=== PATIENT | male | born 1975 | race Two or more races ===

== ENCOUNTER 2019-03-08 21:27 | Emergency (ER) | payer BC, MEDICAID ==
[~2019-03-08] VITALS: Ht 177.8 cm; Wt 86.2 kg
--- NOTE | 2019-03-08 21:35 | NUR ---
Patient is AOx4, speaking in complete sentences, speech is clear. Able to follow /comprehend directions. Gait is stable. No cardiovascular distress noted. Rate/rhythm regular. No CP. No respiratory distress noted. Respirations even , unlabored, symmetrical chest rise. No adventitious sounds noted. Chief complaint: Patient comes in with c/o ABD pain 8-10/10, NAUSEA AND VOMITING X 4UPON ARRIVAL, AND lower back PAIN Bowel sounds present and normoactive in all four quadrants. - ABD distention. Denies Fever/Chills. No recent travel. +CHEMO [place] LAST 2008/NKDA. - ETOH / -recreational drug use/ NONSMOKER. LBM- yesterday. Continent of bowel and bladder function. SAFETY Patient in bed, bed in lowest position. Siderails up x 2. Call light within reach. Will continue to monitor accordingly HEAD Denies hitting head, LOC, diplopia, worsening headache, balance problems vertigo/dizziness, difficulty concentrating, photophobia, phonophobia, nausea, vomiting HEART hx of HTN DM CAD, denies hx of chest pain or sensation of tightness, SOB, no report of copious diaphoresis, denies shooting pains into left arm or jaw
[2019-03-08] MEDS ORDERED: IV NORMAL SALINE 1000 ML BAG IV ONE (22:15)
[2019-03-08] MEDS ORDERED: HYDROMORPHONE 1 MG/1 ML DISP.SYRIN IV ONE ×2 (22:15→23:30)
[2019-03-08] MEDS ORDERED: ONDANSETRON 4 MG/2 ML VIAL IV ONE (22:15)
[2019-03-08] MEDS ORDERED: FAMOTIDINE. 20 MG/2 ML VIAL IV ONE ×2 (22:15→22:19)
[2019-03-08] MEDS ORDERED: HYDROMORPHONE 1 MG/1 ML DISP.SYRIN ONE ×2 (22:19→23:29)
[2019-03-08] MEDS ORDERED: ONDANSETRON 4 MG/2 ML VIAL ONE (22:19)
[2019-03-08 22:24] LABS: BASOPHILS % (AUTO) 0.7 % (0.0-2.0); EOSINOPHILS # (AUTO) 0.3 K/uL (0.0-0.7); HEMATOCRIT 47.3 % (36.7-47.1); HEMOGLOBIN 16.1 g/dL (12.5-16.3); LYMPHOCYTES % (AUTO) 45.4 % (20.5-51.5); MEAN CORPUSCULAR HGB CONC 34 g/dL (32.5-36.3); MEAN CORPUSCULAR VOLUME 82.3 fL (73.0-96.2); MONOCYTES # (AUTO) 0.5 K/uL (2.0-10.0); MONOCYTES % (AUTO) 8.1 % (0.0-11.0); NEUTROPHILS # (AUTO) 2.7 K/uL (1.8-8.9); NEUTROPHILS % (AUTO) 41.8 % (38.5-71.5); PLATELET COUNT (AUTO) 278 K/uL (152-348); RED BLOOD CELL COUNT(AUTO) 5.74 MIL/uL (4.06-5.63); WHITE BLOOD COUNT (AUTO) 6.6 K/uL (3.6-10.2)
[2019-03-08 22:29] LABS: CARBON DIOXIDE 25 mmol/L (21-32); CHLORIDE 107 mmol/L (98-107); GLUCOSE 94 mg/dL (74-106); UREA NITROGEN, BLOOD 10 mg/dL (7-18)
[2019-03-08 22:35] LABS: ALANINE AMINOTRANSFERASE 66 U/L (16-63); ALKALINE PHOSPHATASE 106 U/L (50-136); ASPARTATE AMINOTRANSFERASE 32 U/L (15-37); BILIRUBIN,DIRECT < 0.1 mg/dL (0.0-0.2); BILIRUBIN,TOTAL 0.2 mg/dL (0.2-1.0); LIPASE 330 U/L (73-393); TOTAL PROTEIN, SERUM 8.3 g/dL (6.4-8.2)
--- NOTE | 2019-03-08 22:52 | NUR ---
PT BACK FROM RADIOLOGY. ABLE TO STAND AND TRANSFER TO [facility], 1 EMESIS NOTED. STILL WITH DIZZINESS AND NAUSEA. MD AT BEDSIDE FOR4 UPDATE ABLE TO TOLERATE IVF MONITORED ACCORDINGLY
[2019-03-08] MEDS ORDERED: KETOROLAC TROMETHAMINE 30 MG INJ ONE (23:09)
[2019-03-08] MEDS ORDERED: KETOROLAC TROMETHAMINE 30 MG INJ IVP ONE (23:15)
--- NOTE | 2019-03-09 00:42 | NUR ---
Patient discharged to home in stable conditon. Written and verbal after care instructions given. Patient verbalizes understanding of instructions. AMBULATORY WITH STABLE GAIT. DENIES PAIN
[2019-03-09 00:43] VITALS: BP 138/91
== END 2019-03-09 00:44 | disposition home or self-care (01) ==
LOC: ER 21:29
DX: R10.84 Generalized abdominal pain (principal); R11.2 Nausea with vomiting, unspecified
CPT/HCPCS: 36415; 74176; 80048; 80076; 83690; 85025; 96374; 96375; 96376; 99284; J1170 ×2; J1885; J2405; J3490; A4663; J7030

== ENCOUNTER 2019-11-01 02:29 | Emergency (ER) | payer MEDICAID, OTHER ==
[~2019-11-01] VITALS: Ht 175.3 cm; Wt 79.4 kg
[2019-11-01] MEDS ORDERED: HYDROCODONE/APAP 10-325 MG TABLET ONE (03:07)
--- NOTE | 2019-11-01 03:08 | NUR ---
Patient states had broken right arm last week and went to [facility] and was Tx'ed with splint but patient removed splint and twisted injuried arm which caused severe pain.
[2019-11-01] MEDS ORDERED: HYDROMORPHONE 2 MG/1 ML DISP.SYRIN ONE (03:11)
[2019-11-01] MEDS ORDERED: ONDANSETRON 4 MG/2 ML VIAL ONE (03:11)
[2019-11-01] MEDS ORDERED: ONDANSETRON 4 MG/2 ML VIAL IM ONE (03:15)
[2019-11-01] MEDS ORDERED: HYDROCODONE/APAP 10-325 MG TABLET PO ONE (03:15)
[2019-11-01] MEDS ORDERED: HYDROMORPHONE 1 MG/1 ML DISP.SYRIN IM ONE (03:15)
--- NOTE | 2019-11-01 03:22 | NUR ---
Patient discharged to home in stable conditon with friend taking patient home. Written and verbal after care instructions given. Patient verbalizes understanding of instructions. Walked out of ER with no distress noted.
[2019-11-01 03:25] VITALS: BP 118/82
== END 2019-11-01 03:28 | disposition home or self-care (01) ==
LOC: ER 02:31
PROC: 2W3DX1Z Immobilization of Left Lower Arm using Splint (ICD-10-PCS; principal; 2019-11-01)
DX: S52.691A Other fracture of lower end of right ulna, initial encounter for closed fracture (principal); X58.XXXA Exposure to other specified factors, initial encounter; Y92.89 Other specified places as the place of occurrence of the external cause
CPT/HCPCS: 99283; 29125; 73090; 96372; J1170; J2405; A4663